=== PATIENT | male | born 1970 | race Two or more races ===

== ENCOUNTER 2019-07-16 13:58 | Emergency (ER) | payer OTHER ==
[~2019-07-16] VITALS: Ht 167.6 cm; Wt 78.0 kg
[2019-07-16 14:18] VITALS: BP 128/66
[2019-07-16] MEDS ORDERED: ONDANSETRON 4 MG TAB.RAPDIS SL ONE (15:00)
[2019-07-16] MEDS ORDERED: HYDROCODONE/APAP 5/325MG 1 EACH TABLET PO ONE (15:00)
[2019-07-16] MEDS ORDERED: HYDROCODONE/APAP 5/325MG 1 EACH TABLET ONE (15:10)
[2019-07-16] MEDS ORDERED: ONDANSETRON 4 MG TAB.RAPDIS ONE (15:10)
--- NOTE | 2019-07-16 16:23 | NUR ---
Patient discharged to home in stable condition. Written and verbal after care instructions given. Patient verbalizes understanding of instruction.
== END 2019-07-16 16:23 | disposition home or self-care (01) ==
LOC: ER 13:58
DX: S99.812A Other specified injuries of left ankle, initial encounter (principal); Z98.890 Other specified postprocedural states; Z60.2 Problems related to living alone; W01.0XXA Fall on same level from slipping, tripping and stumbling without subsequent striking against object, initial encounter; Y93.01 Activity, walking, marching and hiking; Y92.89 Other specified places as the place of occurrence of the external cause; Y99.8 Other external cause status
CPT/HCPCS: 73610; 73630; 99283; Q0162